=== PATIENT | female | born 1950 | race Caucasian/White ===

== ENCOUNTER → 2020-06-09 | Outpatient (CLI) | payer MEDICARE ==
--- NOTE | 2020-06-09 18:46 | BD ---
EXAMINATION TYPE: Axial Bone Density DATE OF EXAM: 06/09/2020 COMPARISON: 12.04.2002 CLINICAL HISTORY: 70 YR OLD FEMALE.....ICD-10 CODE: M81.0 OSTEOPOROSIS Height: 62 Weight: 247 FRAX RISK QUESTIONS: NOTHING TO NOTE HERE RISK FACTORS HISTORY OF: Family History of Osteoporosis: UNKNOWN Postmenopausal woman: YES, IN HER EARLY 50s Lost more than 2 inches in height since high school: YES Hyperparathyroidism: UNKNOWN Adrenal Insufficiency: UNKNOWN MEDICATIONS: Thyroid Medications: YES, SYNTHROID 15+ YRS Additional Medications: REFLUX MED , VIT D , Additional History: REFLUX, ARTRITIS, PT VERY UNHAPPY WITH WAIT EXAM MEASUREMENTS: Bone mineral densitometry was performed using the [employer] System. Bone mineral density as measured about the Lumbar spine is: ----- L1-L4(G/cm2): 1.228 T Score Values are as follows: ----- L1: 1.4 ----- L2: 0.9 ----- L3: 0.2 ----- L4: -0.6 ----- L1-L4: 0.4 Bone mineral density has: Decreased -10.9% SINCE.....12.04.2002 STUDY Bone mineral density about the R hip (g/cm2): 0.977 Bone mineral density about the L hip (g/cm2): 0.942 T Score values are as follows: -----R Neck: -1.5 -----L Neck: -1.3 -----R Total: -0.2 -----L Total: -0.5 Bone mineral density has: Decreased -19.5% SINCE... 12.04.2002 STUDY FRAX%s: THERE IS A 8.1% CHANCE FOR A MAJOR OSTEOPOROTIC FX AND A 0.9% FOR HIP.....PROBABILITY FOR FX IN 10 YRS TIME IMPRESSION: Osteopenia (T Score between -2.5 and -1). There is slightly increased risk of fracture and the patient may be considered for treatment. Re-Screen 2-5 years. NOTE: T-SCORE=SD OF THE YOUNG ADULT MEAN.
--- NOTE | 2020-06-11 14:10 | MM ---
Reason for exam: screening (asymptomatic). Last mammogram was performed 15 years and 7 months ago. Physical Findings: A clinical breast exam by your physician is recommended on an annual basis and results should be correlated with mammographic findings. MG 3D Screening Mammo W/Cad Bilateral CC and MLO view(s) were taken. No prior studies available for comparison. The breast tissue is almost entirely fat. Nodularity in the right breast. ASSESSMENT: Probably benign, BI-RAD 3 RECOMMENDATION: Follow-up diagnostic mammogram of the right breast in 6 months.
== END | disposition home or self-care (01) ==
LOC: RADMAMWWP 09:51
PROVIDERS: ATTEND Internal Medicine Geriatric Medicine
DX: M85.80 Other specified disorders of bone density and structure, unspecified site (principal)
CPT/HCPCS: 77063; 77067; 77080

== ENCOUNTER 2022-02-28 14:06 | Observation (INO) | payer MEDICARE ==
--- NOTE | 2022-02-28 14:52 | ED ---
General Adult HPI - General Chief complaint: Chest Pain Stated complaint: Chest Pain Time Seen by Provider: 02/28/22 14:14 Source: patient Mode of arrival: EMS Limitations: no limitations - History of Present Illness Initial comments: Dictation was produced using [employer] dictation software. please excuse any grammatical, word or spelling errors. Chief Complaint: 72-year-old female with no significant past medical history presents with chest pain History of Present Illness: Patient is a 72-year-old female with no significant past medical history. She had an episode of chest pain that lasted for several minutes. She states that it was like a sharp twinge to substernal area. It lasted for several minutes. She called EMS and was brought to the ER. She did receive aspirin and nitroglycerin. Patient denies any history of coronary artery disease. She denies any history of diabetes, hypertension or high cholesterol. Patient has family history of heart attacks. Patient's a symptomatically at the bedside. The ROS documented in this emergency department record has been reviewed and confirmed by me. Those systems with pertinent positive or negative responses have been documented in the HPI. All other systems are other negative and/or noncontributory. PHYSICAL EXAM: General Impression: Alert and oriented x3, not in acute distress HEENT: Normocephalic atraumatic, extra-ocular movements intact, pupils equal and reactive to light bilaterally, mucous membranes moist. Cardiovascular: Heart regular rate and rhythm Chest: Able to complete full sentences, no retractions, no tachypnea Abdomen: abdomen soft, non-tender, non-distended, no organomegaly Musculoskeletal: Pulses present and equal in all extremities, no peripheral edema Motor: no focal deficits noted Neurological: CN II-XII grossly intact, no focal motor or sensory deficits noted Skin: Intact with no visualized rashes Psych: Normal affect and mood ED course: 72-year-old well-appearing female presents to the emergency department with episode of chest pain. Her symptoms are atypical with typical features. Patient asymptomatic at the bedside. Vital signs upon arrival Nursing notes and chart review was performed EKG interpreted by me: Ventricular rate 65, sinus rhythm, WA interval 170, QRS 81, QTc 45. No WA prolongation, no QTC prolongation, no ST or T-wave changes noted. Overall, this EKG is unremarkable Laboratory evaluation obtained. CBC, coag panel, metabolic panel is unremarkable. Troponin is negative. Patient reevaluated bedside at 5:30 PM continues to be symptomatic. Patient has multiple risk factors patient be admitted to observation for cardiac monitoring and cardiology consultation. [facility] - Related Data Allergies Allergy/AdvReac Type Severity Reaction Status Date / Time No Known Allergies Allergy Verified 02/28/22 14:13 Review of Systems ROS Statement: Those systems with pertinent positive or pertinent negative responses have been documented in the HPI. ROS Other: All systems not noted in ROS Statement are negative. Past Medical History Past Medical History: Thyroid Disorder History of Any Multi-Drug Resistant Organisms: None Reported Past Surgical History: Appendectomy, Section, Tubal Ligation Past Psychological History: No Psychological Hx Reported Smoking Status: Never smoker Past Alcohol Use History: None Reported Past Drug Use History: None Reported General Exam Limitations: no limitations Course Vital Signs 02/28/22 02/28/22 02/28/22 14:10 14:19 16:33 Temperature 98.5 F Pulse Rate 73 70 84 Respiratory 16 16 20 Rate Blood Pressure 187/86 170/89 172/84 O2 Sat by Pulse 99 98 98 Oximetry 02/28/22 17:25 Temperature Pulse Rate 68 Respiratory 20 Rate Blood Pressure 141/83 O2 Sat by Pulse 98 Oximetry Medical Decision Making - Lab Data Result diagrams: 02/28/22 14:59 02/28/22 14:59 Lab Results 02/28/22 02/28/22 02/28/22 Range/Units 14:59 14:59 14:59 WBC 8.4 (3.8-10.6) k/uL RBC 4.67 (3.80-5.40) m/uL Hgb 15.3 (11.4-16.0) gm/dL Hct 44.5 (34.0-46.0) % MCV 95.2 (80.0-100.0) fL MCH 32.8 (25.0-35.0) pg MCHC 34.5 (31.0-37.0) g/dL RDW 12.7 (11.5-15.5) % Plt Count 282 (150-450) k/uL MPV 8.8 Neutrophils % 51 % Lymphocytes % 29 % Monocytes % 7 % Eosinophils % 8 % Basophils % 1 % Neutrophils # 4.3 (1.3-7.7) k/uL Lymphocytes # 2.4 (1.0-4.8) k/uL Monocytes # 0.6 (0-1.0) k/uL Eosinophils # 0.7 (0-0.7) k/uL Basophils # 0.1 (0-0.2) k/uL PT 10.1 (9.0-12.0) sec INR 1.0 (<1.2) APTT 29.1 (22.0-30.0) sec Sodium 144 (137-145) mmol/L Potassium 5.2 H (3.5-5.1) mmol/L Chloride 111 H (98-107) mmol/L Carbon Dioxide 25 (22-30) mmol/L Anion Gap 8 mmol/L BUN 19 H (7-17) mg/dL Creatinine 0.89 (0.52-1.04) mg/dL Est GFR (CKD-EPI)AfAm 76 (>60 ml/min/1.73 sqM) Est GFR (CKD-EPI)NonAf 66 (>60 ml/min/1.73 sqM) Glucose 104 H (74-99) mg/dL Calcium 9.1 (8.4-10.2) mg/dL Magnesium 2.1 (1.6-2.3) mg/dL Total Bilirubin 0.5 (0.2-1.3) mg/dL AST 29 (14-36) U/L ALT 23 (4-34) U/L Alkaline Phosphatase 86 (38-126) U/L Troponin I (0.000-0.034) ng/mL Total Protein 7.7 (6.3-8.2) g/dL Albumin 4.5 (3.5-5.0) g/dL 02/28/22 Range/Units 14:59 WBC (3.8-10.6) k/uL RBC (3.80-5.40) m/uL Hgb (11.4-16.0) gm/dL Hct (34.0-46.0) % MCV (80.0-100.0) fL MCH (25.0-35.0) pg MCHC (31.0-37.0) g/dL RDW (11.5-15.5) % Plt Count (150-450) k/uL MPV Neutrophils % % Lymphocytes % % Monocytes % % Eosinophils % % Basophils % % Neutrophils # (1.3-7.7) k/uL Lymphocytes # (1.0-4.8) k/uL Monocytes # (0-1.0) k/uL Eosinophils # (0-0.7) k/uL Basophils # (0-0.2) k/uL PT (9.0-12.0) sec INR (<1.2) APTT (22.0-30.0) sec Sodium (137-145) mmol/L Potassium (3.5-5.1) mmol/L Chloride (98-107) mmol/L Carbon Dioxide (22-30) mmol/L Anion Gap mmol/L BUN (7-17) mg/dL Creatinine (0.52-1.04) mg/dL Est GFR (CKD-EPI)AfAm (>60 ml/min/1.73 sqM) Est GFR (CKD-EPI)NonAf (>60 ml/min/1.73 sqM) Glucose (74-99) mg/dL Calcium (8.4-10.2) mg/dL Magnesium (1.6-2.3) mg/dL Total Bilirubin (0.2-1.3) mg/dL AST (14-36) U/L ALT (4-34) U/L Alkaline Phosphatase (38-126) U/L Troponin I <0.012 (0.000-0.034) ng/mL Total Protein (6.3-8.2) g/dL Albumin (3.5-5.0) g/dL Disposition Clinical Impression: Chest pain Disposition: ADMITTED IP TO THIS [facility] Condition: Fair Referrals: Ari Casillas MD [Primary Care Provider] - 1-2 days Decision Time: 17:30
[2022-02-28 15:19] LABS: Albumin 4.5 g/dL (3.5-5.0); Calcium 9.1 mg/dL (8.4-10.2); Magnesium 2.1 mg/dL (1.6-2.3); Potassium 5.2 mmol/L (3.5-5.1); Total Bilirubin 0.5 mg/dL (0.2-1.3); Total Protein 7.7 g/dL (6.3-8.2)
[2022-02-28 15:23] LABS: Partial Thromboplastin Time 29.1 sec (22.0-30.0); Prothrombin Time 10.1 sec (9.0-12.0)
[2022-02-28 15:24] LABS: Basophils # (A) 0.1 k/uL (0-0.2); Basophils % (A) 1 %; Eosinophils # (A) 0.7 k/uL (0-0.7); Eosinophils % (A) 8 %; HCT 44.5 % (34.0-46.0); HGB 15.3 gm/dL (11.4-16.0); Lymphocytes # (A) 2.4 k/uL (1.0-4.8); Lymphocytes % (A) 29 %; MCH 32.8 pg (25.0-35.0); MCHC 34.5 g/dL (31.0-37.0); MCV 95.2 fL (80.0-100.0); Mean Platelet Volume 8.8; Monocytes # (A) 0.6 k/uL (0-1.0); Monocytes % (A) 7 %; Neutrophils # (A) 4.3 k/uL (1.3-7.7); Neutrophils % (A) 51 %; Platelet Count 282 k/uL (150-450); RBC 4.67 m/uL (3.80-5.40); RDW 12.7 % (11.5-15.5); WBC 8.4 k/uL (3.8-10.6)
--- NOTE | 2022-02-28 17:17 | XR ---
EXAMINATION TYPE: XR chest 2V DATE OF EXAM: 02/28/2022 5:09 PM COMPARISON: None TECHNIQUE: XR chest 2V Frontal and lateral views of the chest. CLINICAL INDICATION:Female, 72 years old with history of Chest Pain; FINDINGS: Lungs/Pleura: There is no evidence of pleural effusion, focal consolidation, or pneumothorax. Pulmonary vascularity: Unremarkable. Heart/mediastinum: Cardiomediastinal silhouette is unremarkable. Musculoskeletal: No acute osseous pathology. IMPRESSION: No acute cardiopulmonary disease/process.
[2022-02-28] MEDS ORDERED: NITROGLYCERIN SL TABS 0.4 MG TAB SUBLINGUAL PRN (17:31)
[2022-03-01] MEDS ORDERED: amLODIPine 5 MG TAB PO STA (07:41)
[2022-03-01] MEDS ORDERED: LEVOTHYROXINE 137 MCG TAB PO SCH (08:00)
[2022-03-01 08:15] VITALS: BP 160/76; PULSE 70; RESP 16; TEMP 98.2
[2022-03-01] MEDS ORDERED: ASPIRIN 325 MG TAB PO SCH (09:00)
[2022-03-01 10:54] LABS: Chol/HDL Ratio 4.35 Ratio; LDL Cholesterol,Calculated 176.6 mg/dL (0.0-131.0)
--- NOTE | 2022-03-01 12:00 | P.CRDCN ---
History of Present Illness Consult date: 03/01/22 Consult reason: chest pain History of present illness: History of present illness: This is a 72-year-old female, she does not follow with a sales representative health insurance. She has a past medical history of high blood pressure taking natural herbal supplement that she has been taking for the past 5-6 years maintaining a blood pressure of 115 systolic at home. She states she has not taken the herbal supplements for the past 3-4 days and that is why her blood pressure is high. She states she will not take a blood pressure medication because there are too many side effects. She does not follow with a sales representative health insurance and she has not had a stress test done in the past patient gives history of having chest pain without radiation along with shortness of breath which she thought was related to panicking. It lasted about a half hour. She received aspirin by EMS which she states helped her chest pain. She denies any chest pain at this time. Patient presented with a blood pressure of 187/86 and at time of evaluation 139/77. Patient did not receive any antihypertensive medications. EKG sinus rhythm with no acute ST changes Chest x-ray: No acute process CBC unremarkable. Potassium 5.2 and repeat 4.3. BUN 19 and creatinine 0.89. Troponins negative 3. Triglycerides 218, cholesterol 286, LDL 176, HDL 65 Review Of Systems: At the time of my evaluation: Constitutional: No fever, no chills. No weakness, fatigue or lethargy. EENT: No headache. No dizziness. Lungs: No shortness of breath, cough, no sputum production. No wheezing. Cardiovascular: No chest pain, no lower extremity edema. No palpitations. No paroxysmal nocturnal dyspnea. No orthopnea. No lightheadedness or dizziness. No syncopal episodes. Abdominal: No abdominal pain. No nausea, vomiting. No diarrhea. No constipation. No bloody or tarry stools. No loss of appetite. Genitourinary: No dysuria.. No urinary retention. Musculoskeletal: No myalgias. No muscle weakness, no gait dysfunction, no frequent falls. No back pain. No neck pain. Integumentary: No wounds, no lesions. No rash or pruritus. No unusual bruising. Neurologic: No aphasia. No facial droop. No change in mentation. No head injury. No headache. No paralysis. No paresthesia. Psychiatric: No depression. No anxiety. Endocrine: No abnormal blood sugars. Physical examination: Gen: This is a 72-year-old female VS: reviewed HEENT: Head is atraumatic, normocephalic. Pupils equal, round. Sclerae is anicteric. NECK: Supple. No JVD. No lymphadenopathy. No thyromegaly. LUNGS: Clear to auscultation. No wheezes or rhonchi. No intercostal retractions. HEART: Regular rate and rhythm. No murmur. ABDOMEN: Soft. Bowel sounds are present. No masses. No tenderness. EXTREMITIES: No pedal edema. No calf tenderness. NEUROLOGICAL: Patient is awake, alert and oriented x3. Cranial nerves 2 through 12 are grossly intact. Assessment: Hypertensive urgency History of hypertension Chest pain with negative troponins and no acute ST changes, acute coronary syndrome ruled out Plan: Recommended that patient undergo stress testing but she has refused Recommended that patient start antihypertensive medication but patient also refused Further recommendations to follow based upon clinical course Thank you kindly for this consultation. Nurse practitioner note has been reviewed, I agree with documented findings and plan of care. Patient was seen and examined. Past Medical History Past Medical History: Thyroid Disorder History of Any Multi-Drug Resistant Organisms: None Reported Past Surgical History: Appendectomy, Section, Tubal Ligation Past Anesthesia/Blood Transfusion Reactions: No Reported Reaction Past Psychological History: No Psychological Hx Reported Smoking Status: Never smoker Past Alcohol Use History: None Reported Past Drug Use History: None Reported - Past Family History Father Family Medical History: Myocardial Infarction ([place]) Medications and Allergies Home Medications Medication Instructions Recorded Confirmed Type Ergocalciferol (Vitamin D2) 1,250 mcg PO SUWE 02/28/22 02/28/22 History [Drisdol] Levothyroxine Sodium [Synthroid] 137 mcg PO DIRECTED 02/28/22 02/28/22 History Allergies Allergy/AdvReac Type Severity Reaction Status Date / Time No Known Allergies Allergy Verified 02/28/22 17:55 Physical Exam Vitals: Vital Signs Temp Pulse Pulse Resp BP BP Pulse Ox 03/01/22 07:50 98.2 F 70 16 160/76 98 03/01/22 07:25 75 20 169/81 96 03/01/22 05:43 65 18 168/75 98 03/01/22 05:08 61 18 96 12/19/22 03:46 64 18 98 03/01/22 02:29 72 18 98 02/28/22 22:21 61 18 139/77 100 02/28/22 21:00 66 18 98 02/28/22 19:00 71 20 152/71 98 02/28/22 18:08 82 16 113/60 98 02/28/22 18:07 68 20 170/85 98 02/28/22 17:25 68 20 141/83 98 02/28/22 16:33 84 20 172/84 98 02/28/22 14:19 70 16 170/89 98 02/28/22 14:10 98.5 F 73 16 187/86 99 Intake and Output 02/28/22 03/01/22 03/01/22 22:59 06:59 14:59 Other: Voiding Method Toilet Weight 113.398 kg Results 02/28/22 14:59 03/01/22 07:59 Cardiac Enzymes 02/28/22 02/28/22 02/28/22 Range/Units 14:59 14:59 17:47 AST 29 (14-36) U/L Troponin I <0.012 <0.012 (0.000-0.034) ng/mL 02/28/22 Range/Units 20:18 AST (14-36) U/L Troponin I <0.012 (0.000-0.034) ng/mL Coagulation 02/28/22 Range/Units 14:59 PT 10.1 (9.0-12.0) sec APTT 29.1 (22.0-30.0) sec Lipids 02/28/22 Range/Units 14:59 Triglycerides 218.00 H (0.00-149.00) mg/dL Cholesterol 286.00 H (0.00-200.00) mg/dL HDL Cholesterol 65.80 H (40.00-60.00) mg/dL Cholesterol/HDL Ratio 4.35 Ratio CBC 02/28/22 Range/Units 14:59 WBC 8.4 (3.8-10.6) k/uL RBC 4.67 (3.80-5.40) m/uL Hgb 15.3 (11.4-16.0) gm/dL Hct 44.5 (34.0-46.0) % Plt Count 282 (150-450) k/uL Comprehensive Metabolic Panel 02/28/22 03/01/22 Range/Units 14:59 07:59 Sodium 144 (137-145) mmol/L Potassium 5.2 H 4.3 (3.5-5.1) mmol/L Chloride 111 H (98-107) mmol/L Carbon Dioxide 25 (22-30) mmol/L BUN 19 H (7-17) mg/dL Creatinine 0.89 (0.52-1.04) mg/dL Glucose 104 H (74-99) mg/dL Calcium 9.1 (8.4-10.2) mg/dL AST 29 (14-36) U/L ALT 23 (4-34) U/L Alkaline Phosphatase 86 (38-126) U/L Total Protein 7.7 (6.3-8.2) g/dL Albumin 4.5 (3.5-5.0) g/dL Current Medications Generic Name Dose Route Start Last Admin Trade Name Freq PRN Reason Stop Dose Admin Aspirin 325 mg 03/01/22 09:00 03/01/22 08:25 Aspirin 325 Mg Tab PO 325 mg DAILY DEBRA Administration Levothyroxine Sodium 137 mcg 03/01/22 08:00 03/01/22 08:23 Levothyroxine 137 Mcg Tab PO 137 mcg 0630 DEBRA Administration Nitroglycerin 0.4 mg 02/28/22 17:31 Nitroglycerin Sl Tabs 0.4 Mg Tab SUBLINGUAL Q5M PRN Chest Pain Intake and Output 02/28/22 03/01/22 03/01/22 22:59 06:59 14:59 Other: Voiding Method Toilet Weight 113.398 kg Patient Weight 03/02/22 06:59 Weight 113.398 kg 02/28/22 14:59 03/01/22 07:59
--- NOTE | 2022-03-02 02:34 | P.HPIM ---
History of Present Illness H&P Date: 03/01/22 This is a 72-year-old female who presented to the emergency department with an episode of chest pain lasting several minutes that was sharp in nature and not subsiding so patient called EMS and brought here for further reevaluation. Patient was given aspirin and nitro and was admitted for cardiac evaluation. Patient with no significant past medical history other than hypothyroidism and follows with Dr. Casillas in the outpatient setting. EKG was done and unremarkable, labs reviewed with negative troponins and within normal limits other than a cholesterol panel which was elevated. Chest x-ray done in the ER showing no acute cardiopulmonary process. Patient was admitted for cardiology evaluation. Review Of Systems: Constitutional: No fever, no chills, no night sweats. No weight change. No weakness, fatigue or lethargy. No daytime sleepiness. EENT: No headache. No blurred vision or double vision, no loss of vision. No loss of Hearing, no ringing in the ears, no dizziness. No nasal drainage or congestion. No epistaxis. No sore throat. Lungs: No shortness of breath, cough, no sputum production. No wheezing. Cardiovascular: reported chest pain that has resolved, no lower extremity edema. No palpitations. No paroxysmal nocturnal dyspnea. No orthopnea. No lightheadedness or dizziness. No syncopal episodes. Abdominal: No abdominal pain. No nausea, vomiting. No diarrhea. No constipation. No bloody or tarry stools.. No loss of appetite. Genitourinary: No dysuria, increased frequency, urgency. No urinary retention. Musculoskeletal: No myalgias. No muscle weakness, no gait dysfunction, no frequent falls. No back pain. No neck pain. Integumentary: No wounds, no lesions. No rash or pruritus. No unusual bruising. No change in hair or nails. Neurologic: No aphasia. No facial droop. No change in mentation. No head injury. No headache. No paralysis. No paresthesia. Psychiatric: No depression. No anxiety. No mood swings. Endocrine: No abnormal blood sugars. No weight change. No excessive sweating or thirst. No cold intolerance. PHYSICAL EXAMINATION: GENERAL: The patient is alert and oriented x4, Well developed, well nourished. Morbidly obese HEENT: Pupils are round and equally reacting to light. EOMI. no scleral icterus. No conjunctival pallor. Normocephalic, atraumatic. No pharyngeal erythema. No thyromegaly. CARDIOVASCULAR: S1 and S2 muffled PULMONARY: diminished breath sounds bilaterally with no wheezing or rhonchi noted. ABDOMEN: soft. Nontender on exam. obese. non-distended, normoactive bowel sounds. No palpable organomegaly. MUSCULOSKELETAL: No joint swelling or deformity. EXTREMITIES: No cyanosis, clubbing, or pedal edema. NEUROLOGICAL: Gross neurological examination did not reveal any focal deficits. SKIN: No rashes. Assessment: Chest pain, ruled out ACS History of hypothyroidism High cholesterol Morbid obesity with BMI of 42.9 GI prophylaxis DVT prophylaxis Full code Plan: Recommend to continue with current medications and management with cardiology following. Cardiology recommending stress testing although patient refused and reports she wants to follow-up with her doctor in follow-up with another bus matron. Patient reports she has been undergoing a lot of stress at work she works part-time at [employer] and things have been hectic around the holiday season. Patient currently denies any chest pain and reports to feeling improved and would like to go home. Encouraged diet modification and low-cholesterol low-fat diet and following up with primary care provider Dr. Casillas this week. To follow-up with cardiology for possible stress testing in the outpatient setting. Patient will likely be discharged this afternoon. The impression and plan of care has been dictated by Lauryn Diez, nurse practitioner as directed. Dr. Leatha MD I have performed a history and examination and MDM of this patient, discussed the same with the dictator, and agree with the dictator's assessment and plan as written ,documented as a scribe. Based on total visit time, I have performed more than 50% of the visit. Any additional findings or plans will be noted. Past Medical History Past Medical History: Thyroid Disorder History of Any Multi-Drug Resistant Organisms: None Reported Past Surgical History: Appendectomy, Section, Tubal Ligation Past Anesthesia/Blood Transfusion Reactions: No Reported Reaction Past Psychological History: No Psychological Hx Reported Smoking Status: Never smoker Past Alcohol Use History: None Reported Past Drug Use History: None Reported - Past Family History Father Family Medical History: Myocardial Infarction ([place]) Medications and Allergies Home Medications Medication Instructions Recorded Confirmed Type Ergocalciferol (Vitamin D2) 1,250 mcg PO SUWE 02/28/22 02/28/22 History [Drisdol (50,000 Iu)] Levothyroxine Sodium [Synthroid] 137 mcg PO DAILY 02/28/22 03/01/22 History Nitroglycerin Sl Tabs [Nitrostat] 0.4 mg SUBLINGUAL Q5M PRN #30 tab 03/01/22 Rx Allergies Allergy/AdvReac Type Severity Reaction Status Date / Time No Known Allergies Allergy Verified 02/28/22 17:55 Physical Exam Vitals: Vital Signs Temp Pulse Pulse Resp BP BP Pulse Ox 03/01/22 07:50 98.2 F 70 16 160/76 98 03/01/22 07:25 75 20 169/81 96 03/01/22 05:43 65 18 168/75 98 03/01/22 05:08 61 18 96 03/01/22 03:46 64 18 98 03/01/22 02:29 72 18 98 02/28/22 22:21 61 18 139/77 100 02/28/22 21:00 66 18 98 02/28/22 19:00 71 20 152/71 98 02/28/22 18:08 82 16 113/60 98 02/28/22 18:07 68 20 170/85 98 02/28/22 17:25 68 20 141/83 98 02/28/22 16:33 84 20 172/84 98 02/28/22 14:19 70 16 170/89 98 02/28/22 14:10 98.5 F 73 16 187/86 99 Intake and Output 02/28/22 03/01/22 03/01/22 22:59 06:59 14:59 Intake Total 240 Balance 240 Intake: Oral 240 Other: Voiding Method Toilet Weight 113.398 kg Results CBC & Chem 7: 02/28/22 14:59 03/01/22 07:59 Labs: Abnormal Lab Results - Last 24 Hours (Table) 02/28/22 02/28/22 Range/Units 14:59 14:59 Potassium 5.2 H (3.5-5.1) mmol/L Chloride 111 H (98-107) mmol/L BUN 19 H (7-17) mg/dL Glucose 104 H (74-99) mg/dL Triglycerides 218.00 H (0.00-149.00) mg/dL Cholesterol 286.00 H (0.00-200.00) mg/dL LDL Cholesterol, Calc 176.6 H (0.0-131.0) mg/dL VLDL Cholesterol, Calc 43.60 H (5.00-40.00) mg/dL HDL Cholesterol 65.80 H (40.00-60.00) mg/dL Thrombosis Risk Factor Assmnt - Choose All That Apply Any of the Below Risk Factors Present?: Yes Each Factor Represents 1 point: Obesity (BMI >25) Other Risk Factors: Yes Each Risk Factor Represents 2 Points: Age 61-74 years Other congenital or acquired thrombophilia - If yes, enter type in comment: No Thrombosis Risk Factor Assessment Total Risk Factor Score: 3 Thrombosis Risk Factor Assessment Level: Moderate Risk Assessment and Plan Time with Patient: Greater than 30
--- NOTE | 2022-03-02 02:38 | P.DS ---
Providers Date of admission: 02/28/22 17:31 Expected date of discharge: 03/01/22 Attending physician: Yulissa Zhang Consults: 02/28/22 17:31 Consult Physician Urgent Consulting Provider: Holden Bethea Consult Reason/Comments: chest pain Do you want consulting provider notified?: Yes Primary care physician: Ari Vinny [facility] Course: Final diagnosis Chest pain, ruled out ACS History of hypothyroidism High cholesterol Morbid obesity with BMI of 42.9 GI prophylaxis DVT prophylaxis Full code Discharge disposition Patient is being discharged in a stable condition with guarded prognosis to home. Patient will follow-up with Dr. Casillas in the outpatient setting upon discharge. Patient is to follow-up outpatient for possible stress testing with cardiology. Total time taken is greater than 35 minutes. Hospital course This is a 72-year-old female who was recently admitted with chest pain and was admitted for cardiology consult. 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 Patient reports to feeling improved and denies any further chest pain. 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 Patient denies any further chest pain and abdomen about going home. Troponins have been negative and patient encouraged to follow a low-cholesterol diet and follow-up with primary care provider to discuss outpatient stress testing and further cardiac workup. Currently no reports of chest pain, shortness of breath, or palpitations. Patient is afebrile. No reports of nausea or vomiting and patient is tolerating diet. Patient will be discharged home today. Guarded prognosis. Physical exam: Gen: This is a 72-year-old female awake, alert and oriented 3, well-developed, well-nourished, morbidly obese HEENT: Head is atraumatic, normocephalic. Pupils equal, round. Sclerae is anicteric. NECK: Supple. No JVD. No lymphadenopathy. No thyromegaly. LUNGS: Clear to auscultation. No wheezes or rhonchi. No intercostal retractions. HEART: Regular rate and rhythm. No murmur. ABDOMEN: Soft. Bowel sounds are present. No masses. No tenderness. EXTREMITIES: No pedal edema. No calf tenderness. NEUROLOGICAL: Patient is awake, alert and oriented x3. Cranial nerves 2 through 12 are grossly intact. Please refer to medication reconciliation sheet for a list of medications. The impression and plan of care has been dictated by Lauryn Diez, Nurse Practitioner as directed. Dr. Leatha MD I have performed a history and examination and MDM of this patient, discussed the same with the dictator, and agree with the dictator's assessment and plan as written ,documented as a scribe. Based on total visit time, I have performed more than 50% of the visit. Patient Condition at Discharge: Stable Plan - Discharge Summary Discharge Rx Participant: No New Discharge Prescriptions: New Nitroglycerin Sl Tabs [Nitrostat] 0.4 mg SUBLINGUAL Q5M PRN #30 tab PRN Reason: Chest Pain Continue Ergocalciferol (Vitamin D2) [Drisdol (50,000 Iu)] 1,250 mcg PO SUWE Levothyroxine Sodium [Synthroid] 137 mcg PO DAILY Discharge Medication List Ergocalciferol (Vitamin D2) [Drisdol (50,000 Iu)] 1,250 mcg PO SUWE 02/28/22 [History] Levothyroxine Sodium [Synthroid] 137 mcg PO DAILY 02/28/22 [History] Nitroglycerin Sl Tabs [Nitrostat] 0.4 mg SUBLINGUAL Q5M PRN #30 tab 03/01/22 [Rx] Follow up Appointment(s)/Referral(s): Ari Casillas MD [Primary Care Provider] - 1-2 days Patient Instructions/Handouts: Chest Pain (DC) Activity/Diet/Wound Care/Special Instructions: activity limited until follow up follow up with pcp on discharge follow up cardiology outpatient for stress testing Discharge Disposition: HOME SELF-CARE
== END 2022-03-01 14:00 | disposition home or self-care (01) ==
LOC: EC 14:06 → 6NMEDSUR 17:31
PROVIDERS: ADMIT Internal Medicine; ATTEND Internal Medicine
DX: R07.9 Chest pain, unspecified (principal); I16.0 Hypertensive urgency; I10 Essential (primary) hypertension; E03.9 Hypothyroidism, unspecified; E78.00 Pure hypercholesterolemia, unspecified; E66.01 Morbid (severe) obesity due to excess calories; Z68.41 Body mass index [BMI] 40.0-44.9, adult; Z79.890 Hormone replacement therapy; Z82.49 Family history of ischemic heart disease and other diseases of the circulatory system
CPT/HCPCS: 99285; 36415; 93005 ×2; 80061; 80053; 83735; 84132; 84484; 85025; 85610; 85730; 71046; G0378 ×2

== ENCOUNTER → 2024-02-21 | Outpatient (CLI) | payer MEDICARE ==
--- NOTE | 2024-02-21 17:15 | XR ---
EXAMINATION TYPE: XR chest 2V DATE OF EXAM: 02/21/2024 3:49 PM COMPARISON: None. CLINICAL INDICATION: Female, 74 years old with history of R06.02 SHORTNESS OF BREATH, TECHNIQUE: XR chest 2V view(s) obtained. FINDINGS: The heart size is normal. The pulmonary vasculature is normal. Mild platelike atelectasis left midlung. Lungs otherwise appear clear.. IMPRESSION: 1. Mild platelike atelectasis left peripheral midlung [facility], , 02/21/2024 5:13 PM
== END | disposition home or self-care (01) ==
LOC: RADXRMAIN 15:34
PROVIDERS: ATTEND Physician Assistant
DX: J98.11 Atelectasis (principal)
CPT/HCPCS: 71046

== ENCOUNTER 2024-03-26 09:02 | Emergency (ER) | payer MEDICARE ==
[2024-03-26 09:32] VITALS: RESP 18
--- NOTE | 2024-03-26 10:03 | ED ---
Fall HPI - General Chief Complaint: Fall Stated Complaint: fall, rt ankle injury Time Seen by Provider: 03/26/24 09:21 Source: patient, RN notes reviewed Mode of arrival: wheelchair Limitations: physical limitation - History of Present Illness Initial Comments: 74-year-old female presents emergency department complaint of right knee right ankle injury. Patient states she went to the mail states that she slipped on some ice twisting, falling. She had no head injury no loss conscious. Patient complains of right knee and right ankle pain. Denies any back pain no other complaints. - Related Data Home Medications Medication Instructions Recorded Confirmed Ergocalciferol (Vitamin D2) 1,250 mcg PO SUWE 02/28/22 02/28/22 [Drisdol (50,000 Iu)] Levothyroxine Sodium [Synthroid] 137 mcg PO DAILY 02/28/22 03/01/22 Previous Rx's Medication Instructions Recorded Nitroglycerin Sl Tabs [Nitrostat] 0.4 mg SUBLINGUAL Q5M PRN #30 tab 03/01/22 Allergies Allergy/AdvReac Type Severity Reaction Status Date / Time No Known Allergies Allergy Verified 03/26/24 09:26 Review of Systems ROS Statement: Those systems with pertinent positive or pertinent negative responses have been documented in the HPI. ROS Other: All systems not noted in ROS Statement are negative. Past Medical History Past Medical History: Hypertension, Thyroid Disorder History of Any Multi-Drug Resistant Organisms: None Reported Past Surgical History: Appendectomy, Section, Tubal Ligation Past Anesthesia/Blood Transfusion Reactions: No Reported Reaction Past Psychological History: No Psychological Hx Reported Smoking Status: Never smoker Past Alcohol Use History: None Reported Past Drug Use History: None Reported - Past Family History Father Family Medical History: Myocardial Infarction (NV) General Exam Limitations: physical limitation General appearance: alert, in no apparent distress Respiratory exam: Present: normal lung sounds bilaterally. Absent: respiratory distress, wheezes, rales, rhonchi, stridor Cardiovascular Exam: Present: regular rate, normal rhythm, normal heart sounds. Absent: systolic murmur, diastolic murmur, rubs, gallop, clicks Extremities exam: Present: other (Right knee mild tenderness with palpation, neurovascular intact full range of motion mild right lateral malleoli are tenderness full with pedal pulses bilaterally) Course Vital Signs 01/13/25 01/13/25 09:27 11:52 Temperature 98.2 F 98.1 F Pulse Rate 80 68 Respiratory 18 18 Rate Blood Pressure 142/108 146/68 O2 Sat by Pulse 99 99 Oximetry Procedures - Orthopedic Splinting/Casting Injury #1 Side: right Lower Extremity Injury Location: short leg, ankle Lower Extremity Immobilizer: posterior splint, synthetic pre-padded splint Other Orthopedic Equipment: walker Medical Decision Making - Medical Decision Making Was pt. sent in by a medical professional or institution (, JOCY, RETAIL ADMINISTRATIVE ASSISTANT, urgent care, hospital, or senior living...) When possible be specific @ -No Did you speak to anyone other than the patient for history (EMS, parent, family, police, friend...)? What history was obtained from this source @ -No Did you review nursing and triage notes (agree or disagree)? Why? @ -I reviewed and agree with nursing and triage notes Were old charts reviewed (outside hosp., previous admission, EMS record, old EKG, old radiological studies, urgent care reports/EKG's, senior living records)? Report findings @ -No old charts were reviewed Differential Diagnosis (chest pain, altered mental status, abdominal pain women, abdominal pain men, vaginal bleeding, weakness, fever, dyspnea, syncope, headache, dizziness, GI bleed, back pain, seizure, CVA, palpatations, mental health, musculoskeletal)? @ -Right ankle sprain, ankle fracture EKG interpreted by me (3pts min.). @ -None X-rays interpreted by me (1pt min.). @ -Right knee shows mild degenerative changes no acute fracture Right ankle x-ray shows distal fibular fracture CT interpreted by me (1pt min.). @ -None done U/S interpreted by me (1pt. min.). @ -None done What testing was considered but not performed or refused? (CT, X-rays, U/S, labs)? Why? @ -None What meds were considered but not given or refused? Why? @ -None Did you discuss the management of the patient with other professionals (professionals i.e. JOCY Finney, RETAIL ADMINISTRATIVE ASSISTANT, lab, RT, psych nurse, social staff worker, caddie, teacher, supply officer, employment evaluator/case manager)? Give summary @ -No Was smoking cessation discussed for >3mins.? @ -No Was critical care preformed (if so, how long)? @ -No Were there social determinants of health that impacted care today? How? (Homelessness, low income, unemployed, alcoholism, drug addiction, transportation, low edu. Level, literacy, decrease access to med. care, snf, rehab)? @ -No Was there de-escalation of care discussed even if they declined (Discuss DNR or withdrawal of care, Hospice)? DNR status @ -No What co-morbidities impacted this encounter? (DM, HTN, Smoking, COPD, CAD, Cancer, CVA, ARF, Chemo, Hep., AIDS, mental health diagnosis, sleep apnea, morbid obesity)? @ -None Was patient admitted / discharged? Hospital course, mention meds given and route, prescriptions, significant lab abnormalities, going to OR and other pertinent info. @ -[Patient has a right ankle fracture patient was splinted, walker provided patient will follow-up with orthopedics. Patient provided analgesics Undiagnosed new problem with uncertain prognosis? @ -No Drug Therapy requiring intensive monitoring for toxicity (Heparin, Nitro, Insulin, Cardizem)? @ -No Were any procedures done? @ -No Diagnosis/symptom? @ -Right ankle fracture Acute, or Chronic, or Acute on Chronic? @ -Acute Uncomplicated (without systemic symptoms) or Complicated (systemic symptoms)? @ -[Uncomplicated Side effects of treatment? @ -No Exacerbation, Progression, or Severe Exacerbation? @ -No Poses a threat to life or bodily function? How? (Chest pain, USA, NV, pneumonia, PE, COPD, DKA, ARF, appy, cholecystitis, CVA, Diverticulitis, Homicidal, Suicidal, threat to staff... and all critical care pts) @ -No Disposition Clinical Impression: Fall, Closed fracture of right distal fibula Disposition: HOME SELF-CARE Condition: Stable Instructions (If sedation given, give patient instructions): Leg Fracture (ED) Additional Instructions: Please return to the Emergency Department if symptoms worsen or any other concerns. Is patient prescribed a controlled substance at d/c from ED?: No Referrals: Ari Casillas MD [Primary Care Provider] - 1-2 days Carson Contreras MD [Medical Doctor] - 1-2 days Time of Disposition: 11:07
--- NOTE | 2024-03-26 10:42 | XR ---
EXAMINATION TYPE: XR ankle complete RT DATE OF EXAM: 03/26/2024 10:17 AM COMPARISON: None CLINICAL INDICATION: Female, 74 years old with history of fall; PHH, pain TECHNIQUE: XR ankle complete RT; frontal, lateral and oblique projections. FINDINGS: Fracture line through the fibula seen on lateral view. Calcaneus Achilles enthesophyte and plantar sp urring noted. There is soft tissue around the ankle. IMPRESSION: Acute distal fibular fracture best appreciated on sagittal imaging. There is 1-2 mm displacement pres ent. [facility], , 03/26/2024 10:40 AM
--- NOTE | 2024-03-26 10:43 | XR ---
EXAMINATION TYPE: XR knee complete RT DATE OF EXAM: 03/26/2024 10:17 AM COMPARISON: None CLINICAL INDICATION: Female, 74 years old with history of fall; PHH, pain TECHNIQUE: XR knee complete RT 3 views submitted. FINDINGS: No evidence of any acute osseous pathology, soft tissue swelling, or joint effusion is no fabby. Tricompartmental osteophyte formation involving the femoral condyles, tibial plateau and patella . Mild joint space narrowing. A fabella is present. Calcified joint bodies also thought to be present posteriorly. IMPRESSION: 1. No acute osseous pathology. 2. Moderate to severe tricompartmental osteoarthritic changes. [facility], , 03/26/2024 10:41 AM
[2024-03-26] MEDS: HYDROcodone/APAP 5-325MG 1 EACH TAB PO STA (11:20)
[2024-03-26] MEDS: ACET/COD 300 MG/30 MG STARTER PACK 6 TAB BTL PO STA (11:21)
[2024-03-26 11:54] VITALS: BP 146/68; PULSE 68; TEMP 98.1
== END 2024-03-26 11:54 | disposition home or self-care (01) ==
LOC: EC 09:02
DX: M84.463A Pathological fracture, right fibula, initial encounter for fracture (principal); W00.0XXA Fall on same level due to ice and snow, initial encounter
CPT/HCPCS: 29515; 99283

== ENCOUNTER → 2024-03-28 | Outpatient (CLI) | payer MEDICARE ==
--- NOTE | 2024-03-28 19:34 | CT ---
EXAMINATION TYPE: CT ankle RT wo con DATE OF EXAM: 03/28/2024 6:17 PM COMPARISON: . Extremity radiograph 03/26/2024 CLINICAL INDICATION: Female, 74 years old with history of RIGHT ANKLE; S82.873A DISPLACED PILON FRACT URE OF; PHH, RT ankle, displaced fracture of tibial plafond. TECHNIQUE: Axial images were obtained of the CT ankle RT wo con, Additional coronal and sagittal refo rmatted images and soft tissue and bone window were obtained for review. 3-D reconstruction was creat ed on a separate workstation. Contrast used: mL of , (None if empty) Oral contrast used: (None if empty) CT DLP: 225.90 mGycm, Automated exposure control for dose reduction was used. FINDINGS: Acute fracture of the distal fibula anterior portion. The tibia appears intact. Chronic inj ury to the deltoid ligament. Calcaneal plantar spur and Achilles enthesophyte formation. The remainde r of the osseous structures are intact. There is soft tissue swelling around the foot. IMPRESSION: Acute fracture of the distal fibula. The tibia appears intact. No pilon fracture visualized. [facility], , 03/28/2024 7:32 PM
== END | disposition home or self-care (01) ==
LOC: RADCTMAIN 17:34
PROVIDERS: ATTEND Orthopaedic Surgery
DX: S82.871A Displaced pilon fracture of right tibia, initial encounter for closed fracture (principal); S82.831A Other fracture of upper and lower end of right fibula, initial encounter for closed fracture; X58.XXXA Exposure to other specified factors, initial encounter

== ENCOUNTER → 2024-09-07 | Outpatient (CLI) | payer MEDICARE ==
--- NOTE | 2024-09-07 14:51 | MM ---
Reason for Exam: Screening (asymptomatic). Last mammogram was performed 4 year(s) and 3 month(s) ago. Patient History: Menarche at age 15. First Full-Term at age 23. Postmenopausal. Patient used Hormonal Contraceptives for 5 years. Risk Values: La 5 year model risk: 1.6%. NCI Lifetime model risk: 4.1%. Prior Study Comparison: 01/08/2003 Left Special View Mammogram, [facility]. 11/23/2004 Bilateral Screening Mammogram, [facility]. 06/09/2020 Bilateral Screening Mammogram, [facility]. Tissue Density: The breasts are almost entirely fatty. Findings: Analyzed By CAD. Right breast: There is no suspicious group of microcalcifications or new suspicious mass. Left breast: There is no suspicious group of microcalcifications or new suspicious mass. Overall Assessment: Negative, BI-RAD 1 Management: Screening Mammogram of both breasts in [address] [facility] will attempt to contact patient to return for supplemental views and ultrasound if indicated. Patient should continue monthly self-breast exams. A clinical breast exam by your physician is recommended on an annual basis. This exam should not preclude additional follow-up of suspicious palpable abnormalities. Note on La scores and lifetime risk: 1. A La score greater than 3% is considered moderate risk. If this is the case, consider specialist referral to assess eligibility for a risk reducing agent. 2. If overall lifetime risk for the development of breast cancer is 20% or higher, the patient may qualify for future screening with alternating mammogram and breast MRI. [facility], , 09/07/2024 2:48 PM. Electronically signed and approved by: Cordell Marrero DO
--- NOTE | 2024-09-09 07:25 | BD ---
EXAMINATION TYPE: Axial Bone Density DATE OF EXAM: 09/07/2024 CLINICAL HISTORY: 74 years old Female. ICD-10 CODE: M810 AGE RELATED OSTEO , Additional History: Height: 62.2 in Weight: 270 lbs FRAX RISK QUESTIONS: History of Fracture in Adulthood: rt ankle age 74 MEDICATIONS: Thyroid Medications: yes Which medication: Synthroid How Lon+ years EXAM MEASUREMENTS: Bone mineral densitometry was performed using the [employer] System. Bone mineral density as measured about the Lumbar spine is: ----- L1-L4(G/cm2): 1.164 T Score Values are as follows: ----- L1: 0.4 ----- L2: -0.6 ----- L3: 0.2 ----- L4: -0.6 ----- L1-L4: -0.1 Z Score Values are as follows: ----- L1: 0.9 ----- L2: -0.1 ----- L3: 0.7 ----- L4: 0.0 ----- L1-L4: 0.4 Bone mineral density has: Decreased -5.2% since study of: 06/09/2020 Bone mineral density about the R hip (g/cm2): 0.943 Bone mineral density about the L hip (g/cm2): 0.942 T Score values are as follows: -----R Neck: -1.2 -----L Neck: -1.2 -----R Total: -0.5 -----L Total: -0.5 Z Score values are as follows: -----R Neck: -0.1 -----L Neck: -0.2 -----R Total: 0.3 -----L Total: 0.2 Bone mineral density has: Decreased -1.8% since study of: 06/09/2020 FRAX%s: The graph provided illustrates a 12.7% chance for a major osteoporotic fx and a 1.5% chance f or the hips probability for fx in 10 years time. IMPRESSION: Osteopenia (T Score between -2.5 and -1). There is slightly increased risk of fracture and the patient may be considered for treatment. Re-Screen 2-5 years. NOTE: T-SCORE=SD OF THE YOUNG ADULT MEAN. [facility], , 09/09/2024 7:22 AM
== END | disposition home or self-care (01) ==
LOC: RADMAMWWP 14:16
PROVIDERS: ATTEND Internal Medicine Geriatric Medicine
DX: Z12.31 Encounter for screening mammogram for malignant neoplasm of breast (principal); M81.0 Age-related osteoporosis without current pathological fracture; M85.89 Other specified disorders of bone density and structure, multiple sites; R92.313 Mammographic fatty tissue density, bilateral breasts; Z78.0 Asymptomatic menopausal state; Z92.0 Personal history of contraception
CPT/HCPCS: 77063; 77067; 77080